=== PATIENT | male | born 1995 ===

== ENCOUNTER 2016-08-03 13:29 | Emergency (ER) | payer SELFPAY ==
[2016-08-03 13:50] VITALS: BP 131/66
[2016-08-03] MEDS ORDERED: Tetracaine 0.5% OPTH.SOL 4 ML* 1 DROP BTL ONE (13:52)
[2016-08-03] MEDS ORDERED: Eye Irrigation Solution 30 ML BOTTLE ONE (13:52)
[2016-08-03] MEDS ORDERED: Fluorescein Sodium TOPICAL* 1 MG TEST ONE (13:52)
--- NOTE | 2016-08-03 14:09 | UC ---
Eye Complaint HPI - HPI Summary HPI Summary: LEFT EYE REDNESS, PAIN / PHOTOPHOBIA X 2 DAYS + METAL SHAVING IN LEFT EYE 2 DAYS AGO + PAIN AND CHANGE IN VISION OF THE LEFT EYE - History of Current Complaint Chief Complaint: UCEye Stated Complaint: LEFT EYE INJURY W/C Time Seen by Provider: 08/03/16 13:33 Hx Obtained From: Patient, Family/Program Director Air Talent Onset/Duration: Sudden Onset, Lasting Days - 2, Still Present Timing: Constant Severity Initially: Moderate Severity Currently: Severe Location of Injury: Conjunctiva - LEFT Character: Throbbing, Foreign Body Sensation - LEFT EYE Aggravating Factor(s): Light, Blinking Alleviating Factor(s): Darkness Associated Signs And Symptoms: Positive: Photophobia, Drainage (Clear), Vision Impairment Left. Negative: Drainage (Purulent) - Allergies/Home Medications Allergies/Adverse Reactions: Allergies Allergy/AdvReac Type Severity Reaction Status Date / Time No Known Allergies Allergy Verified 08/03/16 13:49 PMH/Surg Hx/FS Hx/Imm Hx Previously Healthy: Yes - Surgical History Surgical History: Unable to Obtain/Confirm - Family History Known Family History: Negative: Diabetes - Social History Alcohol Use: None Substance Use Type: None Smoking Status (MU): Never Smoked Tobacco Review of Systems Constitutional: Negative Skin: Negative Eyes: Blurred Vision - LEFT, Eye Redness - LEFT, Photophobia - LEFT ENT: Negative Respiratory: Negative All Other Systems Reviewed And Are Negative: Yes Physical Exam Triage Information Reviewed: Yes Appearance: Well-Nourished, Pain Distress Vital Signs: Initial Vital Signs Temp 97.5 F 08/03/16 13:43 Pulse 65 08/03/16 13:43 Resp 16 08/03/16 13:43 BP 131/66 08/03/16 13:43 Pulse Ox 99 08/03/16 13:43 Vital Signs Reviewed: Yes Eyes: Positive: Conjunctiva Inflamed - LEFT EYE, Discharge - CLEAR DISCHARGE LEFT EYE, Other: - + METAL SHAVING LEFT EYE , WAS REMOVED USING AN 18 G NEEDLE ENT Exam: Normal ENT: Positive: Normal ENT inspection, Hearing grossly normal, Pharynx normal Neck: Positive: Supple, Nontender, No Lymphadenopathy Respiratory: Positive: Chest non-tender, Lungs clear, Normal breath sounds Cardiovascular: Positive: RRR, No Murmur, Pulses Normal Skin Exam: Normal Eye Complaint Course/Dx - Differential Dx/Diagnosis Provider Diagnoses: FB LEFT EYE. IRRITIS LEFT EYE Discharge - Discharge Plan Condition: Stable Disposition: HOME Prescriptions: Tobramycin/Dexameth OPTH.SUSP* [Tobradex 0.3-0.1%*] 1 drop LEFT EYE Q4H #1 btl Patient Education Materials: Iritis (ED), Eye Foreign Body (ED) Print Language: UPPER SORBIAN Referrals: Ness BURGOS,Macey [Medical Doctor] - As Soon As Possible
== END 2016-08-03 14:39 | disposition home or self-care (01) ==
LOC: EDBD → UCCORT 13:29
DX: T15.12XA Foreign body in conjunctival sac, left eye, initial encounter (principal); X58.XXXA Exposure to other specified factors, initial encounter; Y93.89 Activity, other specified; Y92.9 Unspecified place or not applicable; H20.9 Unspecified iridocyclitis
CPT/HCPCS: 99202; A9270-GY; G0463

== ENCOUNTER 2016-12-30 18:00 | Inpatient (IN) | payer OTHER ==
[2016-12-30] MEDS ORDERED: ceFAZolin 2 GM PREMIX(*) 2 GM/50 ML BAG IVPB ONE (19:32)
[2016-12-30] MEDS ORDERED: fentaNYL* 50 MCG/ML 2 ML VIAL (100 MCG VIAL) ONE (19:45)
[2016-12-30] MEDS ORDERED: Midazolam* 1 MG/ML 2 ML VIAL (2 MG) ONE (19:45)
[2016-12-30] MEDS ORDERED: Succinylcholine* 20 MG/ML 10 ML VIAL ONE (19:46)
[2016-12-30] MEDS ORDERED: Dexamethasone IV* 4 MG/ML 1 ML (4 MG) ONE (19:46)
[2016-12-30] MEDS ORDERED: Ondansetron INJ* 2 MG/ML VIAL ONE (19:46)
[2016-12-30] MEDS ORDERED: Ketorolac INJ* 30 MG/ML 1 ML VIAL ONE (19:46)
[2016-12-30] MEDS ORDERED: Propofol* 10 MG/ML 20 ML BTL IV PUSH ONE (19:46)
[2016-12-30] MEDS ORDERED: Lidocaine 2% PF * 5 ML VIAL ONE (20:57)
[2016-12-30] MEDS ORDERED: Bupivacaine 0.5% W/EPI SDV* 10 ML VIAL INJ ONE (20:59)
[2016-12-30] MEDS ORDERED: DiMENhydriNATE IV* 50 MG/ML VIAL IV PUSH PRN (21:47)
[2016-12-30] MEDS ORDERED: fentaNYL* 50 MCG/ML 2 ML VIAL (100 MCG VIAL) IV PRN (21:47)
[2016-12-30] MEDS ORDERED: HYDROmorphone* 1 MG/ML 1 ML SYR IV PRN (21:47)
[2016-12-30] MEDS ORDERED: diPHENhydraMINE IV* 50 MG/ML 1 ml VIAL (BENADRYL) IV PRN (21:48)
[2016-12-30] MEDS ORDERED: Polyethylene Glycol 3350* 17 GM PACKET PO PRN (21:48)
[2016-12-30] MEDS ORDERED: oxyCODONE TAB* 5 MG TAB PO PRN (21:48)
[2016-12-30] MEDS ORDERED: oxyCODONE/Acetamin 5/325 MG* TAB PO PRN (21:48)
[2016-12-30] MEDS ORDERED: Ondansetron INJ* 2 MG/ML VIAL IV PRN (21:48)
[2016-12-30] MEDS ORDERED: Morphine INJ* 2 MG/ML 1 ML SYRINGE IV PRN (21:48)
[2016-12-30] MEDS ORDERED: Acetaminophen TAB* 325 MG PO PRN (21:48)
--- NOTE | 2016-12-30 22:50 | RAD ---
CPT II Codes: 6045F. Indication: Left ankle drainage. Fluoroscopic services provided for referring physician. 1 minute and 13 seconds of fluoroscopy time was used. 5 spot images of the ankle were obtained. IMPRESSION: Fluoroscopic services provided for referring physician.
[2016-12-30] MEDS ORDERED: oxyCODONE/Acetamin 5/325 MG* TAB ONE (23:51)
[2016-12-31] MEDS: ceFAZolin VIAL(*) 1 GM in NS 0.9% 50 ML* 50 ML IVPB SCH ×2 (03:53→11:08)
[2016-12-31 06:31] LABS: Hematocrit 44 % (42-52); Hemoglobin 14.4 g/dl (14.0-18.0)
[2016-12-31 06:49] LABS: BUN/Creatinine Ratio 18.3 (8-20); EGFR African American 147.2 (>60); EGFR Non-African American 114.5 (>60); Potassium 4.3 mmol/L (3.5-5.0)
[2016-12-31] MEDS: oxyCODONE/Acetamin 5/325 MG* TAB PO PRN ×2 (07:19)
[2016-12-31] MEDS ORDERED: Aspirin TAB* 325 MG PO SCH (09:00)
--- NOTE | 2016-12-31 10:27 | PN ---
Progress Note - Progress Note Date of Service: 12/31/16 SOAP: Subjective: 23 y/o male s/p I&D L ankle after trauma/ open ankle fracture by Dr. Nicole . Patient very poor italian speaker, was able to communicate with some venezuelan knowledge, denies pain, states a bit warm overnight, no N/V, tolerating pain medication well. Objective: General- Well appearing, NAD. MSK- Vital Signs Temp 98.1 F 12/31/16 07:45 Pulse 58 12/31/16 07:45 Resp 16 12/31/16 09:19 BP 106/39 12/31/16 07:45 Pulse Ox 97 12/31/16 07:45 Intake & Output 12/30/16 12/31/16 12/31/16 18:59 06:59 18:59 Intake Total 1375 560 Output Total 600 0 Balance 775 560 Weight 153 lb Intake: IV Fluids 922 LR 222 lr 700 IVPB 53 ABX - CEFAZOLIN 53 Oral 400 560 Output: Urine 600 0 Other: # Bowel Movements 0 Laboratory Results - last 24 hr 12/31/16 12/31/16 05:28 05:28 Hgb 14.4 Hct 44 Sodium 137 Potassium 4.3 Chloride 105 Carbon Dioxide 25 Anion Gap 7 BUN 15 Creatinine 0.82 Est GFR ( Amer) 147.2 Est GFR (Non-Af Amer) 114.5 BUN/Creatinine Ratio 18.3 Glucose 144 H Calcium 9.0 Assessment: 23 y/o male s/p I&D L ankle after trauma/ open ankle fracture by Dr. Nicole . Plan: - DVT prophylaxis- ASA 325mg BID - Percocet for pain control. - Continue abx- keflex 500 TID - D/C to home today - non -weight bearing L leg, use crutches Active Medications Generic Name Dose Route Start Last Admin Trade Name Freq PRN Reason Stop Dose Admin Acetaminophen 650 mg 12/30/16 21:48 Tylenol Tab* PO Q4H PRN PAIN OR TEMPERATURE Aspirin 325 mg 12/31/16 09:00 12/31/16 07:20 Aspirin Tab* PO 325 mg BID SHAWN Administration Diphenhydramine HCl 25 mg 12/30/16 21:48 Benadryl Iv* IV Q6H PRN itching or sleep Cefazolin Sodium 1 gm/ Sodium 50 mls @ 200 mls/hr 12/31/16 03:30 12/31/16 03: 53 Chloride IVPB 12/31/16 19:44 200 mls/hr Q8H SHAWN Administration Lactated Ringer's 1,000 mls @ 100 mls/hr 12/30/16 22:00 Lactated Ringers 1000 Ml Bag* IV PER RATE SHAWN Morphine Sulfate 2 mg 12/30/16 21:48 Morphine Inj (Syringe)* IV Q2H PRN PAIN - MODERATE TO SEVERE Ondansetron HCl 4 mg 12/30/16 21:48 Zofran Inj* IV Q6H PRN nausea Oxycodone HCl 10 mg 12/30/16 21:48 Roxycodone Tab* PO Q4H PRN PAIN - MODERATE TO SEVERE Oxycodone/Acetaminophen 1 tab 12/30/16 21:48 Percocet 5/325 Tab* PO Q4H PRN PAIN Oxycodone/Acetaminophen 2 tab 12/30/16 21:48 12/31/16 07:19 Percocet 5/325 Tab* PO 2 tab Q4H PRN Administration PAIN Polyethylene Glycol/Electrolytes 17 gm 12/30/16 21:48 Miralax* PO DAILY PRN Constipation
[2016-12-31 16:28] VITALS: BP 121/50
--- NOTE | 2017-01-01 08:06 | DS ---
DISCHARGE SUMMARY: DATE OF ADMISSION: 12/30/16 DATE OF DISCHARGE: 12/31/16 COMPLAINT: Open fracture left ankle lateral malleolus CONSULTATIONS: Physical Therapy, Occupational Therapy. BRIEF HISTORY: Mr. Coley is a pleasant 23-year-old male who was injured in an auger accident on 12/30/16. He initially presented to Urgent Care and was sent to [facility] Orthopedics clinic and seen by Dr. Nicole, who performed an I and D and washout on his left ankle on 12/30/16 and admitted postop for 3 doses of IV antibiotics. The patient tolerated the procedure well. He received three doses of IV antibiotics. Postoperatively, his vital signs and labs remained stable. He was nonweightbearing on the left lower extremity. His pain control was managed with Percocet. On postoperative day 1, the patient was orthopedically and medically stable for discharge to go home. PHYSICAL EXAMINATION: General: Well appearing, in no acute distress. Alert and oriented. Guatemalan speaking. Vital Signs: Temperature 98.1, pulse 58, respirations 16, blood pressure 106/39, pulse ox 97% on room air. Patient's left lower extremity in splint. No signs of drainage or discharge noted. The patient is able to move left toes and left knee without complaints. DISCHARGE MEDICATIONS: 1. Aspirin 325 mg one tablet b.i.d. x1 month. 2. Oxycodone 5/325 one to two tablets every 4 to 6 hours as needed for pain. 3. Keflex 500 mg one tablet t.i.d. p.o. x7 days. 4. Motrin 600 mg p.o. q. 6 hours p.r.n. 5. Tylenol 650 mg p.o. q. 4 hours p.r.n. pain, not to exceed 4000 mg a day. CONDITION ON DISCHARGE: Stable. ASSESSMENT: Open fracture left ankle lateral malleolus DISCHARGE INSTRUCTIONS: Mr. Coley is a pleasant 23-year-old male, status post washout of an open left ankle fracture. The patient will follow up with Dr. Nicole in approximately 7 to 10 days. He will take aspirin twice a day for DVT prophylaxis and Percocet as directed for pain control. He will go to the ER should he develop chest pain or shortness of breath, and will call the office if he develops fever, sweats, chills, or increasing pain or redness around the incision site. Dr. Nicole (he is writing this) examined the patient prior to discharge and spoke to him in Guatemalan regarding the plan and told the patient to telephone him on his mobile phone or present to clinic if he develops any of the above signs of an ankle infection. JOHN SIMPSON [id number]/[facility] #: [id number] MTDAlex
--- NOTE | 2017-01-02 06:15 | OP ---
OPERATIVE REPORT: DATE OF OPERATION: 12/30/16 DATE OF : [birth year] SURGEON: Umesh Nicole MD. ADMISSIONS RN: JOHN Sunshine. The participation of a physician home care assistant was required for retraction throughout the case. ANESTHESIOLOGIST: Dr. Preet Campos. ANESTHESIA: General. PRE-OP DIAGNOSIS: Left open ankle fracture, lateral malleolus. POST-OP DIAGNOSIS: Left open ankle fracture, lateral malleolus. PROCEDURE: Irrigation and debridement, left open ankle fracture, lateral malleolus, skin to bone. ANTIBIOSIS: 2 g Ancef IV. IV FLUIDS: See anesthesia note. TOURNIQUET TIME: 38 minutes at 300 mmHg. IRRIGANT: 6 L of normal saline. IMPLANTS: None. COMPLICATIONS: None. SPECIMEN: None. ESTIMATED BLOOD LOSS: Minimal. 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, who presented to my clinic this afternoon having sustained at 5:30 AM this morning a left open ankle fracture, lateral malleolus in a farm injury, while putting manure into an auger. The patient's ankle, when I saw him in clinic, was fully clean with no sign of contamination. There was, however, a defect that I described is perhaps 8 mm in diameter, roughly circular, and about the level of the fracture of the lateral malleolus. I explored it in clinic. The patient received tetanus in the [facility], but not yet antibiotics. I opted to take the patient to surgery to clean out and close his wound, given the communication with fracture, in the setting of a work, farm injury. Discussed benefits, risks, and possible complications of the procedure with the patient and his lump room supervisor in clinic. I had them bring themselves to the hospital for a procedure this evening. DESCRIPTION OF PROCEDURE: A preoperative written consent was obtained. I reviewed possible complications, benefits, and risks with the patient in Korean. Operative extremity was marked in the preoperative holding. The patient received the IV antibiotics when he was first in preoperative holding. The patient was taken back to the operating room and placed supine on operating room table. Bumps placed under the left donovan-pelvis. The patient was sedated and LMA placed. Bone foam was placed under the left lower extremity. A tourniquet was placed above the left thigh, but not yet elevated. The left lower extremity was prepped and draped. Prep was done with Iodine. A surgical time-out was performed. Esmarch was applied and tourniquet was elevated to 300 mmHg. A skin incision was made just proximal and distal to the skin laceration, in a longitudinal fashion with the axis of the leg. I curved this incision slightly anterior and both proximal and distal to the wound, so that it would be overlying the lateral malleolus and not endangering peroneals. I dissected with dissection scissors through subcutaneous tissue, both at the site of the wound and just proximal and distal. No gross contamination encountered. The wound was exactly at the level of the fracture site. While the fracture had appeared noncomminuted on x-ray, it had more of a Ana logo shape to it, with 3 separate fracture fragments with 2 planes of fracture. These looked well reduced and nondisplaced as it did on x-ray. There appeared possible communication with the joint more medially. I slightly opened up the fracture fragments and cleaned off between them with a curette. There was no contaminant whatsoever. I irrigated the wound very well with 6 L of normal saline through cystoscopy tubing. Because there was no subtle or gross sign of infection, I did not take cultures swabs. Because the wound appeared so clean, I decided to close it primarily. Granted it had been at this point, I believe, just over 12 hours since the wound occurred, but it had been small, covered sterilely. I closed the subcutaneous layer with very simple stitches using a monofilament absorbable 3-0 suture. I closed the skin with a running stitch using a nonabsorbable monofilament 4-0 suture. Xeroform, 4x4s, ABD, posterior splint within a sugar tong about it. Noel bandage. The patient was awakened and extubated and brought to the PACU. DISPOSITION: 1. As I had discussed with the patient and his lump room supervisor in clinic, my plan for postoperatively was for the patient to receive 3 doses of IV Ancef given this being an open fracture. Therefore, the patient will be admitted postoperatively and will be available to be discharged home tomorrow after his second dose tomorrow of IV Ancef. 2. He is nonweightbearing in that splint. 3. He will go home after discharge on Keflex antibiosis x7 days. 4. Percocet as needed for pain control. 5. The patient will follow up in approximately 7 to 10 days for skin check. The patient was given my mobile telephone number and he is to call me or make an appointment to my office if he develops any increased left ankle pain, fevers , sweats, chills or other problems. [id number]/[facility] #: [id number] ANDREA
--- NOTE | 2017-01-14 18:50 | HP ---
PREOPERATIVE HISTORY AND PHYSICAL: DATE OF ADMISSION/SURGERY: 12/30/16 DATE OF OFFICE VISIT: 12/30/16 ATTENDING SURGEON: Dr. Umesh Nicole. PROCEDURE: I and D, left open ankle fracture, lateral malleolus. CHIEF COMPLAINT: Left ankle pain. 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 He had immediate pain. He was seen in Urgent Care where he was given a tetanus shot. X-rays were performed that revealed a lateral malleolus fracture. There was an open laceration over the fracture site. Therefore, there was a concern for an open fracture. He was sent to Dr. Nicole's clinic. He reports no other injury. He denies fever, chills, chest pain, or shortness of breath. He has agreed to undergo an I and D of left open ankle fracture of the lateral malleolus with Dr. Nicole on 12/30. PAST MEDICAL HISTORY: No current problems. PAST SURGICAL HISTORY: No prior surgeries. MEDICATIONS: No current medications. ALLERGIES: No known drug allergies. FAMILY HISTORY: No pertinent family history. SOCIAL HISTORY: He works on a farm. He denies tobacco or alcohol use. He denies illegal drug use. REVIEW OF SYSTEMS: A 14-point review of systems was reviewed with the patient and found to be positive for the current complaint, otherwise negative. PHYSICAL EXAMINATION GENERAL: A well-developed, well-nourished, 23-year-old male, in no acute distress. Alert and oriented x3. Appropriate mood and affect. VITAL SIGNS: Height 66, weight 180, pulse 86, temperature 98.1, BMI 29.0. HEENT: Normocephalic, atraumatic. PERRLA. Throat clear. NECK: Supple. PULMONARY: Lungs are clear to auscultation bilaterally. No wheezing, rhonchi, or rales. CARDIO: Regular rate and rhythm. S1 and S2. No murmurs, rubs, or gallops. No edema. ABDOMEN: Positive bowel sounds. Soft, nontender. NEURO: Alert and oriented x3. Cranial nerves grossly intact. Sensation intact to light touch. MUSCULOSKELETAL: Left ankle, there is a transverse skin laceration at the level of the fracture. With probing, there is a soft tissue defect that continues deep to clearly communicate with the fracture. No significant wound drainage. No skin edge erythema. +2 dorsalis pedis pulses. Sensation intact to light touch distally. DIAGNOSTIC STUDIES: Multiple-view x-rays of the left ankle reveal a transverse fracture distal to the tibiotalar joint, minimally displaced. IMPRESSION: Left ankle lateral malleolus open fracture. PLAN: 1. The patient is scheduled to undergo an I and D left open ankle fracture lateral malleolus with Dr. Nicole on 12/30/16 directly after clinic. 2. As well, the surgery was booked for possible ORIF to enable fixation as needed. 3. Postop, the patient will stay in the hospital for 24 hours of antibiotics. He will be placed on a splint. 4. Percocet will be used for postop pain management. 5. A written H&P on a green progress note was initially used for the H&P for this patient. JOHN GREER [id number]/[facility] #: [id number] MTDAlex
== END 2016-12-31 16:00 | disposition home or self-care (01) | DRG 494 ==
LOC: OR 18:00 → MERGE 23:09 → SSU 23:09
PROVIDERS: ADMIT Orthopaedic Surgery; ATTEND Orthopaedic Surgery
PROC: 0SBG0ZZ Excision of Left Ankle Joint, Open Approach (ICD-10-PCS; principal; 2016-12-30 20:00)
DX: S82.65XB Nondisplaced fracture of lateral malleolus of left fibula, initial encounter for open fracture type I or II (principal); W30.89XA Contact with other specified agricultural machinery, initial encounter; Y92.79 Other farm location as the place of occurrence of the external cause
CPT/HCPCS: 36415; 76000; 80048; 85014; 85018; A9270-GY; J0330; J0690; J1100; J1885; J2250; J2405; J2704; J3010

== ENCOUNTER 2018-01-02 18:10 | Emergency (ER) | payer SELFPAY ==
--- NOTE | 2018-01-02 18:59 | UC ---
UC General HPI - HPI Summary HPI Summary: Patient presents to urgent care requesting STD testing. Patient is Mohawk- speaking. Video interpretation services used throughout the encounter. Nurse present throughout. Patient states he has a friend who is very sick with an infection wants to be tested. Patient does not know what the infection is. Patient states the front is not hospitalized. Patient denies any complaints himself. Patient denies fevers or chills. No nausea or vomiting. No diarrhea. No blood in the stool or urine. No penile discharge. No penile erythema. No pain. He denies abdominal pain or back pain. No dysuria. He states he sexually active with females only. Does not know of any contact STDs. Patient specifically requesting testing for HIV. Patient denies knowing anybody with HIV or treatment for HIV. Of note, patient's here with a male friend whose requesting similar testing. Patient does note that he has had some small non-painful bumps on his penis that presented 3 weeks ago. He do not hurt and they do not have drainage. Pt has no complaints Patient's medications reviewed this visit Patient is on no prescriptions and does not take anything [id number]. - History of Current Complaint Stated Complaint: PERSONAL Time Seen by Provider: 01/02/18 18:37 Hx Obtained From: Patient, Hand Molder And Caster - video bulgarian - Allergy/Home Medications Allergies/Adverse Reactions: Allergies Allergy/AdvReac Type Severity Reaction Status Date / Time No Known Allergies Allergy Verified 01/02/18 19:02 Home Medications: Home Medications NK [No Home Medications Reported] 01/02/18 [History Confirmed 01/02/18] PMH/Surg Hx/FS Hx/Imm Hx Previously Healthy: Yes - Surgical History Surgery Procedure, Year, and Place: denies - Family History Known Family History: Positive: Diabetes Negative: Blood Disorder - Social History Occupation: Employed Full-time - ranch work Lives: Dormitory/Roommates Alcohol Use: None Substance Use Type: None Smoking Status (MU): Never Smoked Tobacco - Immunization History Most Recent Influenza Vaccination: 2014 Most Recent Tetanus Shot: unsure Most Recent Pneumonia Vaccination: never Review of Systems Constitutional: Negative Genitourinary: Ulceration/Lesion - penile lesions All Other Systems Reviewed And Are Negative: Yes Physical Exam - Summary Physical Exam Summary: Vital Signs Reviewed: Yes A+Ox3, no distress Eyes: Conjunctiva Clear, JIMBO. EOM intact and full ENT: Hearing grossly normal TM x 2 clear, mmoist, uvula midline, no exudate, no erythema Neck: Positive: Supple Respiratory: Positive: No respiratory distress, No accessory muscle use + CTA throughout no w/r Cardiovascular: RRR nl s1, s2 no m/r CBT <2 sec abd soft + BS nt/nd no guarding, no distension no CVA genital exam with RN Gabriella Ruiz in room. No hernia b/l uncircumcised. easily retractable foreskin. No lesions. No drainage. no odor. no pain in scrotum or testicles no discharge nontender Musculoskeletal Exam: JUAN x 4 without difficulty Strength Intact, ROM Intact Neurological: Positive: Alert, + sensation throughout Psychological: Positive: Normal Response To Family Skin: Positive: no rash, no ecchymosis Triage Information Reviewed: Yes Course/Dx - Course Course Of Treatment: Pt through the use of ipad intepreter requesting STD testing. Pt reports had lesions on penis approx 10 days ago have resolved non cocerning at exam at this time. will not treat at this time. I d/w pt testing panel including blood and urine. After discussion and consent: If pt's testing all negative will contact Derrick (see RN notes) and report negative. If pt's testing with result needing discussion, will tell Derrick and pt will return to - will use hang gliding instructor to communicate. Pt comfortable an in agreement with plan - Differential Dx - Multi-Symptom Provider Diagnoses: STD check Discharge - Sign-Out/Discharge Documenting (check all that apply): Discharge/Admit/Transfer - Discharge Plan Condition: Stable Disposition: HOME Patient Education Materials: Sexually Transmitted Diseases (ED) Print Language: SETSWANA Referrals: [facility] [Outside] No Primary Care Phys,NOPCP [Primary Care Provider] - Additional Instructions: - You were tested today in your urine and your blood for sexually-transmitted diseases. (HIV, hepatitis, herpes, gonorrohea, chlamydia, trichamonas, syphillis ) These results may take up to 1 week to come back. As we discussed with the hang gliding instructor, if your results are all normal we will call Derrick and tell him this. If we need to further discuss your results, we will tell Derrick you need to come in for your results. You do not need to check in as a patient - we will just use an hang gliding instructor in a private room to get the results. - If you have any concerns, you should follow-up with your doctor - Billing Disposition and Condition Condition: STABLE Disposition: Home
[2018-01-02 19:02] VITALS: BP 121/71
[2018-01-04 12:41] LABS: Herpes Simplex Virus II IgG AB Negative (Negative)
--- NOTE | 2018-01-05 11:18 | UC ---
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 advise safe sexual practices Discharge - Sign-Out/Discharge Documenting (check all that apply): Discharge/Admit/Transfer - Discharge Plan Condition: Stable Disposition: HOME Patient Education Materials: Sexually Transmitted Diseases (ED) Print Language: MACEDONIAN Referrals: [facility] [Outside] No Primary Care Phys,NOPCP [Primary Care Provider] - Additional Instructions: - You were tested today in your urine and your blood for sexually-transmitted diseases. (HIV, hepatitis, herpes, gonorrohea, chlamydia, trichamonas, syphillis ) These results may take up to 1 week to come back. As we discussed with the mental health consultant, if your results are all normal we will call Derrick and tell him this. If we need to further discuss your results, we will tell Derrick you need to come in for your results. You do not need to check in as a patient - we will just use an mental health consultant in a private room to get the results. - If you have any concerns, you should follow-up with your doctor - Billing Disposition and Condition Condition: STABLE Disposition: Home
== END 2018-01-02 19:45 | disposition home or self-care (01) ==
LOC: UCCORT 18:10
DX: Z20.2 Contact with and (suspected) exposure to infections with a predominantly sexual mode of transmission (principal)
CPT/HCPCS: 36415; 86592; 86695; 86696; 86703; 86803; 87340; 87491; 87591; 87661; 99211; G0463

== ENCOUNTER 2018-01-09 21:18 | Emergency (ER) | payer SELFPAY ==
--- NOTE | 2018-01-09 21:33 | UC ---
Complaint Male HPI - HPI Summary HPI Summary: Conducted in [place]. Patient who had come earlier today to the to receive results of STD screening returns due to concerns of STI. 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 - History of Current Complaint Stated Complaint: PERSONAL Time Seen by Provider: 01/09/18 21:25 Hx Obtained From: Patient Onset/Duration: Gradual Onset, Lasting Days Timing: Intermittent, Lasting Seconds Severity Initially: Mild Severity Currently: None Location: Groin Aggravating Factor(s): Nothing Alleviating Factor(s): Nothing Associated Signs And Symptoms: Positive: Negative - Risk Factors Testicular Torsion: Negative - Allergies/Home Medications Allergies/Adverse Reactions: Allergies Allergy/AdvReac Type Severity Reaction Status Date / Time No Known Allergies Allergy Verified 01/02/18 19:02 PMH/Surg Hx/FS Hx/Imm Hx Previously Healthy: Yes - Surgical History Surgical History: Unable to Obtain/Confirm Surgery Procedure, Year, and Place: denies - Family History Known Family History: Positive: Diabetes Negative: Blood Disorder - Social History Alcohol Use: None Substance Use Type: None Smoking Status (MU): Never Smoked Tobacco - Immunization History Most Recent Influenza Vaccination: 2014 Most Recent Tetanus Shot: unsure Most Recent Pneumonia Vaccination: never Review of Systems Constitutional: Negative Genitourinary: Other - pressure on groin All Other Systems Reviewed And Are Negative: Yes Physical Exam Triage Information Reviewed: Yes Appearance: Well-Appearing, No Pain Distress, Well-Nourished Vital Signs Reviewed: Yes Eyes: Positive: Conjunctiva Clear ENT: Positive: Hearing grossly normal Neck: Positive: Supple Respiratory: Positive: Chest non-tender Cardiovascular: Positive: Pulses Normal, Brisk Capillary Refill Male Genital Exam: Positive: Normal Genitalia, No Hernia - no testicular masses or tenderness upon palpation, no penile lesions or discharge, no hernias, no varicocele, non tender along groin area Complaint Male Course/Dx - Course Course Of Treatment: patient was concerned about results of HSV 1 being positive. He complained of vague pain that is not present anymore and reassurance was given to him. His genital exam was normal - Differential Dx/Diagnosis Provider Diagnoses: History of positive titers for HSV 1 Discharge - Sign-Out/Discharge Documenting (check all that apply): Discharge/Admit/Transfer - Discharge Plan Condition: Stable Disposition: HOME Patient Education Materials: Oral Herpes Simplex Virus Infections (ED) Referrals: No Primary Care Phys,NOPCP [Primary Care Provider] - [facility] [place]] - Billing Disposition and Condition Condition: STABLE Disposition: Home
[2018-01-09 21:34] VITALS: BP 133/72
== END 2018-01-09 22:01 | disposition home or self-care (01) ==
LOC: UCCORT 21:18
DX: Z51.89 Encounter for other specified aftercare (principal); B00.1 Herpesviral vesicular dermatitis
CPT/HCPCS: 99211; G0463